=== PATIENT | female | born 1955 ===

== ENCOUNTER 2018-03-19 06:32 | Observation (INO) | payer MEDICAID ==
[2018-03-11 15:29] VITALS: BMI 32.9
--- NOTE | 2018-03-19 07:19 | CP.PCM.PN ---
Subjective - Date & Time of Evaluation Date of Evaluation: 03/19/18 Time of Evaluation: 07:22 - Subjective Subjective: 62 yo female with pmhx of htn, osteoporosis and arhtritis seen and evaluated in [facility] for right food rigid flatfoot. Patient states it has been causing her pain for over 3 years and she has exhaausted all conservative treatment including but not limited to orthotics, inserts, NSAIDs. Patient denies taking any medications regularly. Patient admits to being NPO. Objective - Constitutional Appears: Well, Non-toxic, No Acute Distress - Head Exam Head Exam: ATRAUMATIC - Eye Exam Eye Exam: Normal appearance Pupil Exam: NORMAL ACCOMODATION - Extremities Exam Additional comments: Right lower extremity exam: Vascular: DP/PT 2/4, CFT <3 secs x 5, TG warm to warm, no edema or erythema noted derm: no open lesions, no hyperkeratotic lesions noted, no clinical signs of infection. ortho: pain with ROM of STJ and AJ with active and passive ROM neuro: protective sensation intact via ipswich 4/4 b/l - Neurological Exam Neurological Exam: Alert, Awake, Oriented x3 Assessment and Plan - Assessment and Plan (Free Text) Assessment: 38 yo female seen and evaluated in [facility] preoperatively for right rigid flatfoot Plan: Pt was seen and examined in [facility] Pt NPO status was confirmed All pre-op testing and clearance in chart Pt has exhausted all conservative treatment at this time and is opting for surgical intervention Pt was explained procedure and post-operative course All pt's questions were answered to satisfaction No guarantees were made Pt understands all risks, benefits and complications of procedure Pt will follow-up in podiatry clinic within 1 week of surgery
[2018-03-19] MEDS ORDERED: ePHEDrine 50 mg/ml Inj ONE (07:22)
[2018-03-19] MEDS ORDERED: Propofol 10 mg/ml Inj (20 ML) ONE (07:22)
[2018-03-19] MEDS ORDERED: Midazolam 2 MG/2 ML VIAL ONE (07:22)
[2018-03-19] MEDS ORDERED: Succinylcholine Chloride 20 mg/ml Syr (5 ml) IV ONE (07:22)
[2018-03-19] MEDS ORDERED: Rocuronium 10 mg/ml (5 ml) ONE ×2 (07:22→11:12)
[2018-03-19] MEDS ORDERED: Phenylephrine 10 mg/ml Inj ONE (07:22)
[2018-03-19] MEDS ORDERED: Sodium Chloride 0.9% 10 ML IV ONE (07:26)
--- NOTE | 2018-03-19 07:27 | CP.SDSHP ---
Same Day Surgery H & P - History Proposed Procedure: Right foot triple arthrodesis Pre-Op Diagnosis: Right foot rigid flatfoot - Allergies Allergies: Allergies No Known Allergies Allergy (Verified 03/19/18 07:24) - Physical Exam Neuro: WNL Heart: WNL Lungs: WNL - Date & Time Date: 03/19/18 Time: 07:27 Short Stay Discharge - Short Stay Discharge Admitting Diagnosis/Reason for Visit: M21.41 Disposition: HOME/ ROUTINE Referrals: Curry Mckee MD [Primary Care Provider] -
[2018-03-19] MEDS ORDERED: Bupivacaine 0.5% Inj(30mL) IJ ONE ×2 (07:28→12:24)
[2018-03-19] MEDS ORDERED: Lidocaine 2% Inj (20ml) IJ ONE (07:28)
[2018-03-19] MEDS ORDERED: Sodium Chloride 0.9% 1,000 ML IV SCH (07:30)
[2018-03-19] MEDS ORDERED: ceFAZolin 1 GM in Sodium Chloride 0.9% 100 ML IVPB STA (07:30)
[2018-03-19] MEDS ORDERED: Bupivacaine HCl 0.5% PF (30 ml) Inj ONE (07:52)
[2018-03-19] MEDS ORDERED: Bupivacaine 0.5% Inj(30mL) ONE (08:15)
[2018-03-19] MEDS ORDERED: ceFAZolin 2 GM in Sodium Chloride 0.9% 100 ML IVPB STA (08:19)
[2018-03-19] MEDS ORDERED: Lactated Ringer's 1,000 ML IV ONE ×3 (08:22→13:38)
[2018-03-19] MEDS ORDERED: Labetalol 5mg/ml (4ml) ONE (10:43)
[2018-03-19] MEDS ORDERED: Thrombin Topical 5,000 Int Units Spray Kit ONE (11:38)
[2018-03-19] MEDS ORDERED: Neostigmine 1:1000 (1 mg/ml) Inj ONE (12:05)
[2018-03-19] MEDS ORDERED: Oxycodone/Acetaminophen 5/325 mg Tab PO PRN (12:44)
--- NOTE | 2018-03-19 12:50 | PCM.SURG1 ---
Surgeon's Initial Post Op Note - Surgeon's Notes Surgeon: Dr. Jairo Archer Dip Painter: Fly Nava PGY3, Judd Johnson PGY3, Patrizia Marcos PGY3 Type of Anesthesia: General LMA, Local Anesthesia Administered By: Dr. Mars Pre-Operative Diagnosis: collapsed abducted right foot deformity with advanced degenration Operative Findings: see dictation. materials: [id number] staple, [id number] staple 4.5 cannulated screw, 6.5 cannulated screw, 4.5 washer, 6.5 washer, femoral head graft. injectibles: 13 cc of .5% marcaine Post-Operative Diagnosis: same Operation Performed: right foot arthrodesis of subtajar joint, talonavicular joint and calcaneocuboid joint and tendoachilles lengthening Specimen/Specimens Removed: none Estimated Blood Loss: EBL {In ML}: 30 Blood Products Given: N/A Drains Used: Horace Morel Post-Op Condition: Good Date of Surgery/Procedure: 03/19/18 Time of Surgery/Procedure: 12:52
--- NOTE | 2018-03-19 12:50 | PCM.ANESB2 ---
Popliteal Nerve Block - Popliteal Nerve Block Date of Procedure: 03/19/18 Procedure Performed: Popliteal Nerve Block Right - Procedure Popliteal Nerve Block: This procedure was explained to the patient that it is for post-operative pain management. Consent was obtained after a thorough discussion with the patient regarding the benefits and possible complications of local anesthetic block of the sciatic nerve at the popliteal level. The patient was brought to the operating room and standard monitors are applied. Time-out was held with the circulating nurse to confirm the correct surgery and the appropriate block.The patient's operative leg was gently raised and supported and the groove in between the biceps femoris and vastus lateralis muscles was carefully palpated. The skin approximately 8cm above the popliteal crease was then marked. The ultrasound transducer was then applied to the posterior thigh approximately 8cm above the popliteal crease in the transverse plane and the sciatic nerve before its division was visualized lateral to the popliteal artery and in between the bicep femoris and semimembranosus/semitendinosus muscles. After identification, the lateral portion of the thigh was prepped with chloroprep solution. At this point, a # 21 gauge Stimuplex insulated 4 inch needle was inserted into pre-marked area and advanced in a perpendicular direction. The needle was inserted above the ultrasound transducer in-plane towards the sciatic nerve in a [id number] direction. Needle advancement was performed carefully under direct ultrasound visualization. Nerve stimulator was used and dorsiflexion of the __right___ foot was elicited at a current of __0.4___ MA. After repeated negative aspiration, __5___cc of __0.5___ % ___bupivacaine was injected and this was flowed with ___15___ cc of ___0.5___% __ropivacaine . Under ultrasound guidance the local anesthetics were observed surrounding sciatic nerve . The needle was removed intact and sterile dressing was applied. The patient tolerated the popliteal nerve block well with stable vital signs and was subsequently prepared for the surgery.
[2018-03-19] MEDS ORDERED: HYDROmorphone 0.5 mg/0.5 ml ISec ONE (12:57)
[2018-03-19] MEDS: HYDROmorphone 0.5 mg/0.5 ml ISec IVP PRN ×2 (13:00→13:10)
--- NOTE | 2018-03-19 15:04 | RAD ---
Date of service: 01/22/2018 03/19/2018 PROCEDURE: Right Foot Radiographs. HISTORY: s/p right foot triple arthrodesis COMPARISON: None. FINDINGS: BONES: Status post triple arthrodesis. Talocalcaneal fixation with a compression screw. Osteotomy of dorsal portion of navicular. No acute fracture identified. Plantar calcaneal spur noted bony detail obscured by overlying fiberglass cast. JOINTS: As above SOFT TISSUES: Normal. OTHER FINDINGS: None. IMPRESSION: Postoperative changes of triple arthrodesis right foot.
--- NOTE | 2018-03-19 15:05 | RAD ---
Date of service: 03/19/2018 PROCEDURE: Right Ankle Radiographs. HISTORY: s/p right foot triple arthrodesis patien tin PACU COMPARISON: 01/22/2018 FINDINGS: BONES: Postoperative changes consistent with triple arthrodesis. Bony detail obscured by overlying fiberglass cast. No acute fracture identified ankle mortise appears intact. JOINTS: Ankle mortise appears intact. SOFT TISSUES: Normal. OTHER FINDINGS: None. IMPRESSION: Status post triple arthrodesis.
[2018-03-19] MEDS: Oxycodone/Acetaminophen 5/325 mg Tab PO PRN ×2 (19:41→23:48)
[2018-03-20] MEDS: Oxycodone/Acetaminophen 5/325 mg Tab PO PRN ×3 (04:18→20:41)
[2018-03-20 06:23] LABS: HEMOGLOBIN 8.7 g/dL (12.0-16.0); MEAN CELL VOLUME 93.2 fl (81.0-99.0); MEAN CORPUSCULAR HEMOGLOBIN 31.4 pg (27.0-31.0); MEAN CORPUSCULAR HGB CONC 33.7 g/dL (33.0-37.0); RBC 2.76 Mil/uL (3.80-5.20); RED CELL DISTRIBUTION WIDTH 13.9 % (11.5-14.5); WHITE BLOOD COUNT 9.4 K/uL (4.8-10.8)
[2018-03-20 06:41] LABS: BLOOD UREA NITROGEN 11 mg/dl (7-17); GFR NON-AFRICAN AMERICAN > 60
[2018-03-20] MEDS: Enoxaparin 40 mg Syringe SC SCH (08:38)
[2018-03-20] MEDS: Multivitamin With Minerals Tab PO SCH (08:39)
--- NOTE | 2018-03-20 08:42 | CP.PCM.PN ---
Subjective - Date & Time of Evaluation Date of Evaluation: 03/20/18 Time of Evaluation: 08:42 - Subjective Subjective: Podiatry progress note for Dr. Archer, 62 yo female seen at bedside 1 day s/p right foot triple arthrodesis. Patient is AAOx3 and in NAD. Patient admits to being NWB to the RLE. States physical therapy has not seen her. Patient admits to significant pain and states she was unable sleep because of it. Patient denies any other complains. Denies calf pain, sob, cough, decreased appeitite, fever, nausea, vomiting. Objective - Vital Signs/Intake and Output Vital Signs (last 24 hours): Temp Pulse Resp BP Pulse Ox 98.4 F 83 19 110/59 L 96 03/20/18 08:34 03/20/18 08:34 03/20/18 08:34 03/20/18 08:34 03/20/18 08:34 - Medications Medications: Current Medications Acetaminophen (Tylenol 325mg Tab) 650 mg PO Q4 PRN PRN Reason: Pain, Mild (1-3) Last Admin: 03/19/18 18:36 Dose: 650 mg Anastrozole (Arimidex 1 Mg Tab) 1 mg PO DAILY [facility] Last Admin: 03/20/18 08:37 Dose: 1 mg Aspirin (Ecotrin) 81 mg PO DAILY [facility] Last Admin: 03/20/18 08:38 Dose: 81 mg Atorvastatin Calcium (Lipitor) 20 mg PO HS [facility] Last Admin: 03/19/18 21:38 Dose: 20 mg Enoxaparin Sodium (Lovenox) 40 mg SC DAILY [facility]; Protocol Last Admin: 03/20/18 08:38 Dose: 40 mg Gabapentin (Neurontin) 600 mg PO TID [facility] Last Admin: 03/20/18 08:39 Dose: 600 mg Losartan Potassium (Cozaar) 25 mg PO DAILY [facility] Last Admin: 03/20/18 08:38 Dose: 25 mg Multivitamins/Minerals (Therapeutic-M Tab) 1 tab PO DAILY [facility] Last Admin: 03/20/18 08:39 Dose: 1 tab Oxycodone/Acetaminophen (Percocet 5/325 Mg Tab) 1 tab PO Q4 PRN PRN Reason: Pain, moderate (4-7) Stop: 03/22/18 12:45 Oxycodone/Acetaminophen (Percocet 5/325 Mg Tab) 2 tab PO Q4 PRN PRN Reason: Pain, severe (8-10) Stop: 03/22/18 12:45 Last Admin: 03/20/18 08:33 Dose: 2 tab Zolpidem Tartrate (Ambien) 5 mg PO HS [facility] Last Admin: 03/19/18 21:38 Dose: 5 mg - Labs Labs: 03/20/18 05:55 03/20/18 05:55 - Constitutional Appears: Well, Non-toxic, No Acute Distress - Head Exam Head Exam: ATRAUMATIC, NORMOCEPHALIC - Eye Exam Eye Exam: Normal appearance - ENT Exam ENT Exam: Mucous Membranes Moist - Extremities Exam Additional comments: Right lower extremity exam: Dressing soaked in sanguinous fluid, however intact. Vascular: DP/pT 2/4, CFT<3 secs x 5, TG warm to warm, minimal edema noted to the rearfoot and midfoot, no erythema noted derm: surgical incisions noted on the medial and lateral aspect of rearfoot/midfoot, and two adelaide noted on the posterior distal aspect of the leg. ALl adelaide intact, no wound dehiscnece noted, JOSEFINA drain noted on the lateral aspect of the midfoot (10cc drainage). No malodor, no clinical signs of infection ortho: pain on palpation to the surgical site and with ankle ROM neuro: protective sensation intact via ipswich 4/4 b/l. - Neurological Exam Neurological Exam: Alert, Awake, Oriented x3 - Psychiatric Exam Psychiatric exam: Normal Affect Assessment and Plan - Assessment and Plan (Free Text) Assessment: 62 yo female seen and evaluated 1 day s/p right foot triple arthrodesis Plan: Patient seen and evaluated chart, labs and vitals reviewed Dilaudid ordered for pain q4 Right foot dressing changed; JOSEIFNA bulb removed, drain intact. Patient to remain NWB using crutches Patient to continue elevating the leg. Patient showed verbal understanding Patient to remain in house due to pain and bleeding in the surgical site Podiatry will continue to follow the patient
--- NOTE | 2018-03-20 08:54 | CP.PCM.DIS ---
Provider - Provider Date of Admission: 03/19/18 13:33 Attending physician: Sam Bazan MD Primary care physician: Curry Mckee Time Spent in preparation of Discharge (in minutes): 30 Diagnosis - Discharge Diagnosis (1) S/P foot surgery Status: Acute (2) Arthritis Status: Acute (3) Hypertension Status: Acute (4) Hyperlipidemia Status: Acute (5) Neuropathy Status: Acute Hospital Course - Lab Results Lab Results: Most Recent Lab Values WBC 9.4 K/uL (4.8-10.8) 03/20/18 05:55 RBC 2.76 Mil/uL (3.80-5.20) L 03/20/18 05:55 Hgb 8.7 g/dL (12.0-16.0) L 03/20/18 05:55 Hct 25.7 % (34.0-47.0) L 03/20/18 05:55 MCV 93.2 fl (81.0-99.0) 03/20/18 05:55 MCH 31.4 pg (27.0-31.0) H 03/20/18 05:55 MCHC 33.7 g/dL (33.0-37.0) 03/20/18 05:55 RDW 13.9 % (11.5-14.5) 03/20/18 05:55 Plt Count 225 K/uL (130-400) 03/20/18 05:55 Sodium 138 mmol/l (132-148) 03/20/18 05:55 Potassium 3.8 MMOL/L (3.6-5.0) 03/20/18 05:55 Chloride 102 mmol/L (98-107) 03/20/18 05:55 Carbon Dioxide 27 mmol/L (22-30) 03/20/18 05:55 Anion Gap 13 (10-20) 03/20/18 05:55 BUN 11 mg/dl (7-17) 03/20/18 05:55 Creatinine 0.7 mg/dl (0.7-1.2) 03/20/18 05:55 Est GFR ( Amer) > 60 03/20/18 05:55 Est GFR (Non-Af Amer) > 60 03/20/18 05:55 Random Glucose 131 mg/dL (65-105) H 03/20/18 05:55 Calcium 8.0 mg/dL (8.4-10.2) L 03/20/18 05:55 - Hospital Course Hospital Course: STILL IN PAIN WITH MINIMAL BLOODY DRAINAGE Discharge Exam - Head Exam Head Exam: ATRAUMATIC - Eye Exam Eye Exam: EOMI, Normal appearance, PERRL Pupil Exam: NORMAL ACCOMODATION, PERRL - GI/Abdominal Exam GI & Abdominal Exam: Normal Bowel Sounds - Rectal Exam Rectal Exam: NORMAL INSPECTION - Extremities Exam Extremities exam: tenderness Additional comments: S/P R FOOT/ANKLE SURGERY - Neurological Exam Neurological exam: Alert, CN II-XII Intact, Normal Gait, Oriented x3, Reflexes Normal - Psychiatric Exam Psychiatric exam: Normal Affect, Normal Mood - Skin Skin Exam: Dry, Intact, Normal Color, Warm Discharge Plan - Follow Up Plan Condition: GOOD Disposition: HOME/ ROUTINE Additional Instructions: D/C HOME TODAY AND FOLLOW UP WITH DR MENDIOLA IF CLEARED BY PODIATRY Referrals: Curry Mckee MD [Primary Care Provider] -
--- NOTE | 2018-03-20 15:04 | HP ---
HISTORY OF PRESENT ILLNESS: Ms. Hill is a 62-year-old female who underwent podiatry surgery (triple arthrodesis of right foot and ankle) because of severe pain and arthritis changes. She was admitted to the hospital for antibiotic and pain management prior to discharge home. PAST MEDICAL HISTORY: Arthritis, hypertension, hyperlipidemia, neuropathy. FAMILY HISTORY: Nonrevealing. SOCIAL HISTORY: Denies smoking or drinking or alcohol or drug use. REVIEW OF SYSTEM: Remarkable for severe right foot and ankle pain. PHYSICAL EXAMINATION: GENERAL: The patient is alert and oriented, appears to be in some distress following surgery. VITAL SIGNS: Blood pressure 110/59, respiratory rate of 18. She is febrile. O2 sat 96% on room air. Pulse rate 83 per minute. SKIN: Shows fair turgor. HEENT: Pupils are equal and reactive to light and accommodation. Mouth shows fair hygiene. JVP flat. LUNGS: Clear. BREASTS: Normal. ABDOMEN: Soft, nontender, no organomegaly. EXTREMITIES: There is a surgical dressing over her right foot and ankle with a drain in place with minimal drainage. Left lower extremity appears unremarkable. Upper extremities are normal. Central nervous system exam grossly intact. LABORATORY DATA: Reviewed. Remarkable for hemoglobin of 8.7. Chemistry is normal except for glucose of 131. IMPRESSION: Status post right foot and ankle surgery, arthritis, neuropathy, hypertension and hyperlipidemia. PLAN: Discharge the patient home today on all her antibiotics and analgesics for pain. Will follow up with Dr. Archer as an outpatient. The patient is waiting for Podiatry clearance prior to discharge home. Sam Bazan MD
[2018-03-21] MEDS: Oxycodone/Acetaminophen 5/325 mg Tab PO PRN (05:00)
[2018-03-21 06:01] LABS: HEMOGLOBIN 8.5 g/dL (12.0-16.0); MEAN CELL VOLUME 94.1 fl (81.0-99.0); MEAN CORPUSCULAR HEMOGLOBIN 31.2 pg (27.0-31.0); MEAN CORPUSCULAR HGB CONC 33.2 g/dL (33.0-37.0); RBC 2.71 Mil/uL (3.80-5.20); WHITE BLOOD COUNT 10.4 K/uL (4.8-10.8)
--- NOTE | 2018-03-21 07:42 | CP.PCM.PN ---
Subjective - Date & Time of Evaluation Date of Evaluation: 03/21/18 Time of Evaluation: 07:39 - Subjective Subjective: Podiatry progress note for Dr. Archer, 62 yo female seen at bedside 2 day s/p right foot triple arthrodesis. Patient is AAOx3 and in NAD. Patient admits to being NWB to the RLE. States physical therapy has not seen her. Patient admits to moderate pain and states it is better from yesterday. Patient denies any other complains. Denies calf pain, sob, cough, decreased appeitite, fever, nausea, vomiting. Objective - Vital Signs/Intake and Output Vital Signs (last 24 hours): Temp Pulse Resp BP Pulse Ox 98 F 95 H 18 128/72 97 03/21/18 04:33 03/21/18 04:33 03/21/18 04:33 03/21/18 04:33 03/21/18 04:33 - Medications Medications: Current Medications Acetaminophen (Tylenol 325mg Tab) 650 mg PO Q4 PRN PRN Reason: Pain, Mild (1-3) Last Admin: 03/19/18 18:36 Dose: 650 mg Anastrozole (Arimidex 1 Mg Tab) 1 mg PO DAILY [facility] Last Admin: 03/20/18 08:37 Dose: 1 mg Aspirin (Ecotrin) 81 mg PO DAILY [facility] Last Admin: 03/20/18 08:38 Dose: 81 mg Atorvastatin Calcium (Lipitor) 20 mg PO HS [facility] Last Admin: 03/20/18 21:40 Dose: 20 mg Enoxaparin Sodium (Lovenox) 40 mg SC DAILY [facility]; Protocol Last Admin: 03/20/18 08:38 Dose: 40 mg Gabapentin (Neurontin) 600 mg PO TID [facility] Last Admin: 03/20/18 16:17 Dose: 600 mg Hydromorphone HCl (Dilaudid) 1 mg IVP Q4 PRN PRN Reason: Pain, severe (8-10) Last Admin: 03/21/18 01:19 Dose: 1 mg Losartan Potassium (Cozaar) 25 mg PO DAILY [facility] Last Admin: 03/20/18 08:38 Dose: 25 mg Multivitamins/Minerals (Therapeutic-M Tab) 1 tab PO DAILY [facility] Last Admin: 03/20/18 08:39 Dose: 1 tab Oxycodone/Acetaminophen (Percocet 5/325 Mg Tab) 1 tab PO Q4 PRN PRN Reason: Pain, moderate (4-7) Stop: 03/22/18 12:45 Oxycodone/Acetaminophen (Percocet 5/325 Mg Tab) 2 tab PO Q4 PRN PRN Reason: Pain, severe (8-10) Stop: 03/22/18 12:45 Last Admin: 03/21/18 05:00 Dose: 2 tab Zolpidem Tartrate (Ambien) 5 mg PO HS [facility] Last Admin: 03/20/18 21:40 Dose: 5 mg - Labs Labs: 03/21/18 05:20 03/20/18 05:55 - Constitutional Appears: Well, Non-toxic, No Acute Distress - Head Exam Head Exam: ATRAUMATIC - Eye Exam Eye Exam: Normal appearance - ENT Exam ENT Exam: Mucous Membranes Moist - Extremities Exam Additional comments: Right lower extremity exam: Dressing soaked in sanguinous fluid, however intact. Vascular: DP/pT 2/4, CFT<3 secs x 5, TG warm to warm, minimal edema noted to the rearfoot and midfoot, no erythema noted derm: surgical incisions noted on the medial and lateral aspect of rearfoot/midfoot, and two adelaide noted on the posterior distal aspect of the leg. ALl adelaide intact, no wound dehiscnece noted, JOSEFINA drain noted, No malodor, no clinical signs of infection ortho: pain on palpation to the surgical site and with ankle ROM neuro: protective sensation intact via ipswich 4/4 b/l. - Neurological Exam Neurological Exam: Alert, Awake - Psychiatric Exam Psychiatric exam: Normal Affect Assessment and Plan - Assessment and Plan (Free Text) Assessment: 62 yo female seen and evaluated 1 day s/p right foot triple arthrodesis Plan: Patient seen and evaluated chart, labs and vitals reviewed Dilaudid ordered for pain q4 Right foot dressing changed; JOSEFINA drain removed and patient in a cast Patient to remain NWB using crutches Patient to continue elevating the leg. Continue physical therapy Patient showed verbal understanding Patient to f/u in podiatry clinic on Saturday Patient to remain in house due to pain and bleeding in the surgical site Podiatry will continue to follow the patient
[2018-03-21 08:10] VITALS: BP 120/71; PULSE 79; RESP 20; TEMP 98.8; O2SAT 94
[2018-03-21] MEDS: Multivitamin With Minerals Tab PO SCH (09:25)
[2018-03-21] MEDS: Enoxaparin 40 mg Syringe SC SCH (09:25)
--- NOTE | 2018-03-21 10:53 | CP.PCM.PN ---
Subjective - Date & Time of Evaluation Date of Evaluation: 03/21/18 Time of Evaluation: 10:54 - Subjective Subjective: LESS R FOOT PAIN AND BLEEDING SEEN BY PODIATRY AND MAY BE D/LY HOME TODAY AFTER VISIT WITH PMD PT SAW PT YESTERDAY Objective - Vital Signs/Intake and Output Vital Signs (last 24 hours): Temp Pulse Resp BP Pulse Ox 98.8 F 79 20 120/71 94 L 03/21/18 08:10 03/21/18 09:27 03/21/18 08:10 03/21/18 09:27 03/21/18 08:10 - Medications Medications: Current Medications Acetaminophen (Tylenol 325mg Tab) 650 mg PO Q4 PRN PRN Reason: Pain, Mild (1-3) Last Admin: 03/19/18 18:36 Dose: 650 mg Anastrozole (Arimidex 1 Mg Tab) 1 mg PO DAILY [facility] Last Admin: 03/21/18 09:26 Dose: 1 mg Aspirin (Ecotrin) 81 mg PO DAILY [facility] Last Admin: 03/21/18 09:28 Dose: 81 mg Atorvastatin Calcium (Lipitor) 20 mg PO HS [facility] Last Admin: 03/20/18 21:40 Dose: 20 mg Enoxaparin Sodium (Lovenox) 40 mg SC DAILY [facility]; Protocol Last Admin: 03/21/18 09:25 Dose: 40 mg Gabapentin (Neurontin) 600 mg PO TID [facility] Last Admin: 03/21/18 09:25 Dose: 600 mg Hydromorphone HCl (Dilaudid) 1 mg IVP Q4 PRN PRN Reason: Pain, severe (8-10) Last Admin: 03/21/18 09:35 Dose: 1 mg Losartan Potassium (Cozaar) 25 mg PO DAILY [facility] Last Admin: 03/21/18 09:27 Dose: 25 mg Multivitamins/Minerals (Therapeutic-M Tab) 1 tab PO DAILY [facility] Last Admin: 03/21/18 09:25 Dose: 1 tab Oxycodone/Acetaminophen (Percocet 5/325 Mg Tab) 1 tab PO Q4 PRN PRN Reason: Pain, moderate (4-7) Stop: 03/22/18 12:45 Oxycodone/Acetaminophen (Percocet 5/325 Mg Tab) 2 tab PO Q4 PRN PRN Reason: Pain, severe (8-10) Stop: 03/22/18 12:45 Last Admin: 03/21/18 05:00 Dose: 2 tab Zolpidem Tartrate (Ambien) 5 mg PO HS [facility] Last Admin: 03/20/18 21:40 Dose: 5 mg - Labs Labs: 03/21/18 05:20 03/20/18 05:55 - Constitutional Appears: No Acute Distress - Head Exam Head Exam: ATRAUMATIC, NORMAL INSPECTION, NORMOCEPHALIC - Eye Exam Eye Exam: EOMI, Normal appearance, PERRL Pupil Exam: NORMAL ACCOMODATION, PERRL - ENT Exam ENT Exam: Mucous Membranes Moist, Normal Exam - Neck Exam Neck Exam: Full ROM, Normal Inspection. absent: Lymphadenopathy - Respiratory Exam Respiratory Exam: Clear to Ausculation Bilateral, NORMAL BREATHING PATTERN - Cardiovascular Exam Cardiovascular Exam: REGULAR RHYTHM, +S1, +S2. absent: Murmur - GI/Abdominal Exam GI & Abdominal Exam: Soft, Normal Bowel Sounds. absent: Tenderness - Rectal Exam Rectal Exam: NORMAL INSPECTION - Extremities Exam Extremities Exam: Full ROM, Normal Capillary Refill. absent: Joint Swelling, Pedal Edema Additional comments: DRY SURGICAL DRESSING IN PLACE OVER R LEG/FOOT/ANKLE - Back Exam Back Exam: NORMAL INSPECTION - Neurological Exam Neurological Exam: Alert, Awake, CN II-XII Intact, Normal Gait, Oriented x3 - Psychiatric Exam Psychiatric exam: Normal Affect, Normal Mood - Skin Skin Exam: Dry, Intact, Normal Color, Warm Assessment and Plan (1) S/P foot surgery Status: Acute (2) Arthritis Status: Acute (3) Hypertension Status: Acute (4) Hyperlipidemia Status: Acute (5) Neuropathy Status: Acute - Assessment and Plan (Free Text) Plan: PROBABLE D/C HOME TODAY IF CLEARED BY PODIATRY CASE DISCUSSED WITH PODIATRY RESIDENT
--- NOTE | 2018-03-21 16:57 | RAD ---
Date of service: 03/21/2018 PROCEDURE: Right Foot Radiographs. HISTORY: evaluate right foot COMPARISON: Right foot radiographs 03/19/2018. FINDINGS: BONES: Status post arthrodesis by solitary screw with the talocalcaneal joint. Additional arthrodesis ease are identified including the medial cuneiform with talus and the cuboid bone with the calcaneus as well. Skin adelaide are again identified medially as well as laterally at the midfoot and hindfoot/ankle skin. Cast obscures fine bone and soft tissue detail. Diminishing soft tissue emphysema noted at the operative sites. Diffuse osteopenia suggests osteoporosis. OTHER FINDINGS: None. IMPRESSION: Status post multifocal arthrodesis as discussed above, not dramatically changed in the interval. Diminishing postoperative changes noted.
--- NOTE | 2018-03-25 14:37 | PCM.OP ---
Operative Report - Operative Report Date of Surgery/Procedure: 03/25/18 Time of Surgery/Procedure: 08:00 Surgeon: Dr. Archer Negative Assembler: 1st Negative Assembler: Dr. Marcela Nava PGY-3, 2nd Assistants: Dr. Johnson, Dr. 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 Patient was initially treated conservatively and now requests surgical intervention for right foot. The patient signed the consent after careful explanation of risks, benefits, complication and alternatives for surgical procedure. No guarantees were given nor implied. 2 grams of Ancef IV were given to the pt hour prior to the procedure. NPO status was confirmed prior to taking pt to the OR. Operative Findings: Preparation: The patient was brought to the operating room and placed on the operating room table in supine position. A well-padded pneumatic Thigh tourniquet was placed to the patient's right Thigh. Once general anesthesia was achieved, the right Lower extremity was then prepped and draped in usual sterile manner. Esmarch was utilized to exsanguinate the patient's right lower extremity. Pneumatic Thigh tourniquet was then inflated to 350 mmHg and procedure began. Procedure/Operation Description: Name of Procedures: 1) Right foot triple arthrodesis 2) Right foot Achilles tendon lengthening PROCEDURE #1: Right foot Triple Arthrodesis Attention was directed to the medial aspect of the patients right foot where a curvilinear incision was made from directly anterior to medial malleolus extendi ng distally overlying the dorsal medial aspect of the first metatarso-cuneiform joint. An incision was made with a #15 blade and dissected to the superficial and subcutaneous tissue utilizing sharp and blunt dissection. Care was taken to retract all vital neurovascular structures throughout the duration of the procedure. All superficial bleeding vessels were ligated and cauterized as necessary. Dissection was then carried down to the level of the periosteum overlying the talonavicular joint and the first metatarsocuneiform joint. A #15 blade and freer elevator were then utilized to free all the periosteum and capsular tissues form the talar head and navicular. At this time, the talonavicular joint as well as talar head and neck could be clearly visualized. Attention was then directed to the lateral aspect of the patients right foot. Utilizing #15 blade, a linear incision was made directly inferior to the lateral malleolus extending to the base of the 4th metatarsal. The incision was then deepened through the superficial and subcutaneous tissues utilizing sharp and blunt dissection. Care was taken to retract all vital neurovascular structures throughout the duration of the procedure. All superficial bleeding vessels were cauterized and ligated as necessary. Dissection was then carried down to the level of the periosteum overlying the calcaneus, talus and cuboid. A curvilinear incision was then made with a #15 blade overlying the lateral aspect of the subtalar joint and the calcaneocuboid joint. A #15 blade and a freer elevator were then utilized to free the capsular and periosteal tissues from the lateral, dorsal and plantar aspect of the calcaneocuboid joint and the lateral subtalar joint. At this time, the calcaneocuboid joint could be adequately visualized as well as the posterior and middle facets of the subtalar joints. Attention was then directed back to the medial incision specifically talo- navicular joint. The joint was resected and prepared utilizing a sagittal saw with the foot held in a corrected dorsiflexed and abducted position. First, the sagittal saw was utilized to resect the cartilage on the talar head. The cartilage on the talar head was then removed from the surgical field and passed to the back table utilizing an osteotome and rongeur. Next, the cartilage from the proximal aspect of the navicular was resected in a similar fashion utilizing the sagittal saw. The resected portion of bone was then removed with an osteotome and rongeur and passed from the surgical field to the back table. It was noted at this time that the cartilaginous surfaces and the subchondral bone of the navicular and the talar aspect of the talonavicular joint had been adequately resected and prepared. Attention was then directed back to the lateral incision specifically to the calcaneocuboid joint. Next, with the foot held in a corrected abducted and dorsiflexed position, a sagittal saw was utilized to resect the cartilage form the proximal aspect of the cuboid and distal aspect of the anterior calcaneus. The joint was resected with the foot held in the corrected position and with a bigger bite of bone taken from the dorsal and lateral aspects. An osteotome and rongeur were then utilized to remove the resected bone from the surgical field and was passed to the back table. At this time, it was noted that the calcaneocuboid joint had been adequately resected and prepared including the cartilage and subchondral bone. Next, attention was directed to the lateral incision specifically the subtalar joint. Again, using the sagittal saw, with the foot held in a corrected, abducted and dorsiflexed position, and the calcaneus everted, the subtalar joint was prepared with the sagittal saw resecting the dorsal aspect, the posterior and medial facets of the subtalar joint on the calcaneus and the plantar aspect and the posterior and medial facets of the subtalar joint on the talus. Once the bone had been adequately resected, an osteotome and rongeur were utilized to remove all resected portions of bone from the surgical field. At this time, it was noted that at the subtalar joint, cartilage and subchondral bone had been adequately prepared in preparation for fusion. After all joints for the triple arthrodesis had been adequately resected, it was also noted that lateral column lengthening was needed to correct abducted foot type and to achieve rectus form of foot. Utilizing a sagittal saw, a frozen femoral allograft was prepared to form a wedge to be fitted into cancaneucuboid joint. After positioning the allograft wedge into the calcaneocuboid joint, it was noted that the foot was able to achieve a corrected abducted and dorsiflexed position with eversion of the calcaneus. Next, a 0.045 inch k-wire was utilized to perform micro-fracturing to all joints prepared for fusion. Next, with the manual reduction to put all three joints in optimal position for fusion, total of five 0.062 inch K-wires were placed across talonavicular, subtalar and calcaneocuboid joints to hold the joints in the exact orientation. Next, the subtalar joint was fixated utilizing a 6.5mm partially threaded Synthes cannulated screw with a washer. Attention was directed to the medial incision where the guidewire for the 6.5mm cannulated Synthes screw was inserted from the talar neck plantarly and posteriorly across the subtalar joint into the body of the calcaneus. Excellent compression of the fusion site was visually confirmed. Excellent orientation of the joint position was confirmed with intra- operative Xray. Next, the calcaneocuboid joint was fixated utilizing two BME Nitinol adelaide from [employer]. Attention was direct to the lateral incision where the prepared allograft wedge with width of approximately 5mm was inserted in the calcaneocuboid joint. Total of four drill holes were made utilizing a drill bit for Synthes BME adelaide. Total of two BME adelaide were placed across the joint, with the allograft wedge in between, providing excellent compression of the fusion site. Excellent orientation of the joint position was confirmed with intra-operative Xray. Next, the talonavicular joint was fixated utilizing two BME Nitinol adelaide from [employer]. Attention was direct to the medial incision where the four drill holes were made utilizing a drill bit for BME adelaide. Total of two BME adelaide were placed across the joint, providing excellent compression of the fusion site. Excellent orientation of the joint position was confirmed with intra-operative Xray. Next, a 0.063 K-wire was inserted across the talonavicular from plantar distal to dorsal proximal direction, and was cut flush to bone for added fixation. Intra-operative fluoroscopy was utilized to confirm appropriate location of the hardware and corrected rectus joint positions of the foot with slight calcaneal eversion. Upon testing passive range of motion at the ankle joint, less than 10 degree of ankle dorsiflexion was noted and it was determined that Achilles tendon lengthening was necessary adequate dorsiflextion of the ankle joint. PROCEDURE #2: Right foot Achilles tendon lengthening Next, attention was directed to the posterior aspect of Right foot where tight Achilles tendon insertion was noted. Total of two small stab incisions were made from proximal to distal, 3cm apart from each other, switching laterality around the Achilles tendon. Medial incision was made first, 2cm proximal from the Achilles tendon insertion, then lateral incision was made 3cm apart from the first incision. Utilizing a hemostat, blunt dissection was performed to expose tendon body. All neurovascular structures were retracted medialy and laterally to be preserved. Next, a #15 blade was used to transect 1/3 of the Achilles tendon through the two incisions. The ankle was then dorsiflexed with care being taken not to violate the fixations for Triple arthrodesis. Immediate improvement of ankle range of motion was noted. All surgical sites were flushed with copious amount of sterile normal saline solution. Next, deep tissues were reapproximated with #2-0 and #3-0 Vicryl, subcutanous tissues were reapproximated and copated with #4-0 Vicryl. Skin was reapproximated and coapted with skin adelaide. Horace-Morel drain was placed through the lateral incision site at the level of subcapsular layer, exiting laterally with care being taken to avoid all neurovascular structures. Drain was assessed and was noted to be functional. All surgical sites were then infiltrated with a total of 10cc of 0.5% Marcaine plain. All sites were now dressed with moist 4x4 gauze, dry 4x4 gauze, jamilah, ANIL bandage and posterior splint. The attending was present during the entire case. Estimated Blood Loss: Less than 20 mL Drains: Horace-Morel drain Complications: None Discharge & Condition: Postoperative Condition: The patient tolerated the anesthesia and procedure well and was escorted to the recovery room with vital signs stable and neurovascular status intact to the Right foot and ankle. This patient will follow up with Dr. Archer in [facility] podiatry clinic
== END 2018-03-21 16:49 | disposition home or self-care (01) ==
LOC: H.OPSURG 06:32 → H.MEDSURG1 13:33
PROVIDERS: ADMIT Internal Medicine Pulmonary Disease; ATTEND Internal Medicine Pulmonary Disease
DX: M21.41 Flat foot [pes planus] (acquired), right foot (principal); M21.541 Acquired clubfoot, right foot; M62.471 Contracture of muscle, right ankle and foot; M19.071 Primary osteoarthritis, right ankle and foot; G62.9 Polyneuropathy, unspecified; M81.0 Age-related osteoporosis without current pathological fracture; I10 Essential (primary) hypertension; E78.5 Hyperlipidemia, unspecified
CPT/HCPCS: 28240; 28715; 36415; 64450; 73610; 73630; 80048; 85027; 96372; 96374; 96376; 97116; 97161; 97530; C1713; C1769; C1776; G0378; G8978; G8979; J0690; J1170; J1650; J2001; J2250; J2370; J2405; J2704; J2710; J2765; J3010; J7120